=== PATIENT | female | born 1995 | race Caucasian/White ===

== ENCOUNTER 2024-01-20 21:39 | Emergency (ER) | payer SELFPAY ==
--- NOTE | 2024-01-20 23:26 | RAD REPORT ---
INDICATION: IUD replacement PROCEDURE: Pelvic ultrasound, transvaginal COMPARISON: None FINDINGS: Uterus: Orientation: Neutral. Measurement: 8.8 x 4.1 x 4.5 cm for a volume of 83.8 mL. Myometrial echotexture: Normal. Endometrial cavity: Normal caliber measuring 0.5 cm in AP diameter. An IUD is identified in good posi tion.. Right Ovary: Size: 3.5 x 1.9 x 2.2 cm for a volume of 7.6 mL. Blood flow: Normal. Appearance: Normal. Left Ovary: Size: 2.7 x 1.9 x 2.4 cm for a volume of 6.2 mL. Blood flow: Normal. Appearance: Normal. Pelvic Cul de Sac: No free fluid. IMPRESSION: 1. IUD in good position. 2. Otherwise unremarkable pelvic ultrasound. Electronically signed by: Bienvenido Olivier MD 01/20/2024 11:15 PM CDT RP Due to temporary technical issues with the [employer] reporting system, reports are being signed by the in-house radiologist without review as a courtesy to ensure prompt reporting the interpreting radiologist is fully responsible for the content of the report. Transcribed Date/Time: 01/20/2024 11:26 PM
[2024-01-20 23:35] LABS: Specific Gravity 1.019 (1.005-1.030)
[2024-01-20 23:36] LABS: Sqamous Epithelial None Seen /HPF (None Seen); Urine Bacteria None Seen /HPF (<20); Urine Bilirubin NEGATIVE (Negative); Urine Blood Negative (Negative); Urine Clarity Extremely Turbid (Clear); Urine Color Light-Yellow (Yellow); Urine Culture Reflex Order NOT NEEDED; Urine Glucose NEGATIVE (Negative); Urine Ketones NEGATIVE (Negative); Urine Microscopic Reflex YN ORDER UMIC; Urine Nitrite NEGATIVE (Negative); Urine Protein NEGATIVE (Negative); Urine RBC None Seen /HPF (None Seen); Urine Urobilinogen 1+ (Normal); Urine WBC None Seen /HPF (<5)
--- NOTE | 2024-01-20 23:47 | ER ---
Nurse's Notes [facility] Name: Valarie Moreland Age: 28 yrs Sex: Female : 1995 Arrival Date: 01/20/2024 Time: 21:39 Bed 16 Private MD: Diagnosis: Pelvic pain Presentation: 01/19 23:10 Chief complaint: Patient states: Tried to pull out my IUD the day before yesterday and vc1 now it is stuck, I've been spotting and cramping. Coronavirus screen: Client denies travel out of the [place] in the last 14 days. At this time, the client does not indicate any symptoms associated with coronavirus-19. Ebola Screen: Patient negative for fever greater than or equal to 101.5 degrees Fahrenheit, and additional compatible Ebola Virus Disease symptoms Patient denies exposure to infectious person. Patient denies travel to an Ebola-affected area in the 21 days before illness onset. No symptoms or risks identified at this time. Initial Sepsis Screen: Does the patient meet any 2 criteria? No. Patient's initial sepsis screen is negative. Does the patient have a suspected source of infection? No. Patient's initial sepsis screen is negative. Risk Assessment: Do you want to hurt yourself or someone else? Patient reports no desire to harm self or others. Onset of symptoms was January 18, 2024. 23:10 Method Of Arrival: Ambulatory vc1 23:10 Acuity: GEO 4 vc1 23:15 Chief complaint: Patient states: HAVING PELVIC PAIN DUE TO IUD FOR 2 DAYS. Coronavirus kj2 screen: At this time, the client does not indicate any symptoms associated with coronavirus-19. Ebola Screen: No symptoms or risks identified at this time. Initial Sepsis Screen: Does the patient meet any 2 criteria? No. Patient's initial sepsis screen is negative. Does the patient have a suspected source of infection? No. Patient's initial sepsis screen is negative. Risk Assessment: Do you want to hurt yourself or someone else? Patient reports no desire to harm self or others. 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 - Infectious Disease History:: Denies. - Social history:: Smoking status: Patient denies any tobacco usage or history of. Screenin:[address] [facility] ED Fall Risk Assessment (Adult) History of falling in the last 3 months, kj2 including since admission No falls in past 3 months (0 pts) Confusion or Disorientation No (0 pts) Intoxicated or Sedated No (0 pts) Impaired Gait No (0 pts) Mobility Assist Device Used No (0 pt) Altered Elimination No (0 pt) Score/Fall Risk Level 0 - 2 = Low Risk Maintained a safe environment, Hourly rounding (assess needs \T\ fall precautionary measures) done. Abuse screen: Denies threats or abuse. Denies injuries from another. Nutritional screening: No deficits noted. Tuberculosis screening: No symptoms or risk factors identified. Assessment: 23:12 General: Appears in no apparent distress. uncomfortable, Behavior is calm, cooperative. kj2 Pain: Complains of pain in left lower quadrant and right lower quadrant Pain currently is 7 out of 10 on a pain scale. Neuro: Level of Consciousness is awake, alert, Oriented to person, place, time, situation. Cardiovascular: Patient's skin is warm and dry. Respiratory: Airway is patent Respiratory effort is even, unlabored. GI: No signs and/or symptoms were reported involving the gastrointestinal system. : No signs and/or symptoms were reported regarding the genitourinary system. Vital Signs: 23:10 BP 144 / 118; Pulse 86; Resp 16; Temp 98; Pulse Ox 99% ; Weight 56.7 kg; Height 5 ft. 7 vc1 in. ; 23:16 BP 146 / 103; Pulse 68; Resp 20; Pulse Ox 98% on R/A; Weight 56.7 kg; Height 5 ft. 7 kj2 in. ; 01/20 00:34 BP 146 / 88; Pulse 68; Resp 20; Temp 97.9; Pulse Ox 100% ; kj2 01/19 23:16 Body Mass Index 19.58 (56.70 kg, 170.18 cm) kj2 ED Course: 01/19 21:45 Patient arrived in ED. im 21:48 [facility]C [facility]. kb 21:48 Srini Mcgraw MD is Attending Physician. kb 22:57 US Transvaginal Study (Probe) In Process Unspecified. EDMS 23:01 Yesika Pierson, RN is Primary Nurse. kj2 23:16 Triage completed. kj2 23:19 Patient has correct armband on for positive identification. Bed in low position. Call kj2 light in reach. Adult w/ patient. Provided Education on: CALL LIGHT. 23:26 Test, Urine Sent. kj2 23:26 Urinalysis w/ reflexes Sent. kj2 23:54 Arm band placed on Patient placed. kj2 23:54 No provider procedures requiring assistance completed. kj2 01/20 00:34 Patient did not have IV access during this emergency room visit. kj2 Administered Medications: 00:33 Drug: Hydrocodone-Acetaminophen PO (7.5 mg-325 mg) 1 tabs PO once Route: PO; kj2 00:33 Follow up: Response: Medication administered at discharge. kj2 Medication: 01/19 23:20 VIS not applicable for this client. vc1 Outcome: 23:47 Discharge ordered by . kb 01/20 00:33 Discharged to home ambulatory, kj2 Condition: stable Discharge instructions given to patient, Instructed on discharge instructions, follow up and referral plans. Demonstrated understanding of instructions, follow-up care, 00:35 Patient left the ED. kj2 Signatures: Dispatcher [employer] [facility] Leonora Thomas FNP-C FNP-Ckb Calcote, Vanessa RN RN vc1 Rika Rodriguez Yesika Pierson, RN RN kj2
--- NOTE | 2024-01-20 23:47 | EDPHYS ---
Physician Documentation [facility] Name: Valarie Moreland Age: 28 yrs Sex: Female : 1995 Arrival Date: 01/20/2024 Time: 21:39 Bed 16 Private MD: ED Physician Srini Mcgraw HPI: 01/19 22:37 This 28 yrs old Female presents to ER via Unassigned with complaints of Pelvic Pain, kb Foreign body In Vagina - cervix. 22:37 Pt is a 28 year old female who presents for pelvic pain that started 2 days ago. States kb she felt like her IUD string was longer than normal so she tried to pull it out, but was unable. States she feels like it is in the wrong place now. . 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 - Infectious Disease History:: Denies. - Social history:: Smoking status: Patient denies any tobacco usage or history of. ROS: 22:37 Constitutional: As per HPI kb Exam: 22:37 Constitutional: This is a well developed, well nourished patient who is awake, alert, kb and in no acute distress. Head/Face: Normocephalic, atraumatic. ENT: Moist Mucous membranes Cardiovascular: Regular rate Respiratory: Respirations even and unlabored. No increased work of breathing. Talking in full sentences Skin: Warm, dry with normal turgor. Normal color. MS/ Extremity: Pulses equal, no cyanosis. Neurovascular intact. Full, normal range of motion. Neuro: Awake and alert, GCS 15, oriented to person, place, time, and situation. Moves all extremities. Normal gait. 22:37 Abdomen/GI: Inspection: abdomen appears normal, Bowel sounds: normal, Palpation: soft, in all quadrants, mild abdominal tenderness, in the right lower quadrant and left lower quadrant, Vital Signs: 23:10 BP 144 / 118; Pulse 86; Resp 16; Temp 98; Pulse Ox 99% ; Weight 56.7 kg; Height 5 ft. 7 vc1 in. ; 23:16 BP 146 / 103; Pulse 68; Resp 20; Pulse Ox 98% on R/A; Weight 56.7 kg; Height 5 ft. 7 kj2 in. ; 01/20 00:34 BP 146 / 88; Pulse 68; Resp 20; Temp 97.9; Pulse Ox 100% ; kj2 01/19 23:16 Body Mass Index 19.58 (56.70 kg, 170.18 cm) kj2 MDM: 01/19 21:49 Patient medically screened. kb 23:46 Differential diagnosis: displaced IUD, ovarian cyst. Data reviewed: vital signs, nurses kb notes. Counseling: I had a detailed discussion with the patient and/or guardian regarding the historical points, exam findings, and any diagnostic results supporting the discharge/admit diagnosis, radiology results, the need for outpatient follow up, an OB/Gyne specialist, to return to the emergency department if symptoms worsen or persist or if there are any questions or concerns that arise at home. 01/19 22:28 Order name: Test, Urine; Complete Time: 23:39 kb 01/19 22:28 Order name: Urinalysis w/ reflexes; Complete Time: 23:39 kb 01/19 22:28 Order name: US Transvaginal Study (Probe) kb Administered Medications: 01/20 00:33 Drug: Hydrocodone-Acetaminophen PO (7.5 mg-325 mg) 1 tabs PO once Route: PO; kj2 00:33 Follow up: Response: Medication administered at discharge. kj2 Disposition: 02:04 Co-signature as Attending Physician, Srini Mcgraw MD I reviewed the patient's care rt provided by the Advanced Practice Provider and agree with the diagnosis and treatment plan. Disposition Summary: 01/20/24 23:47 Discharge Ordered Notes: Location: Home kb Condition: Stable kb Diagnosis - Pelvic pain kb Followup: kb - With: Emergency Department - When: As needed - Reason: Worsening of condition Followup: kb - With: Private Physician - When: 2 - 3 days - Reason: Recheck today's complaints, Continuance of care, Re-evaluation by your physician Discharge Instructions: - Discharge Summary Sheet kb - Pelvic Pain, Female, [id number] kb Forms: - Medication Reconciliation Form kb - Antibiotic Education kb - Prescription Opioid Use kb - Patient Portal Instructions kb - Leadership Thank You Letter kb Signatures: Dispatcher [employer] Leonora Lynn, Linda Mg RN RN vc1 Srini Mcgraw MD MD rt Jordan, Krystal, RN RN kj2
[2024-01-21] MEDS ORDERED: HYDROCODONE/APAP 7.5/325 MG TAB ONE (00:31)
[2024-01-21 01:25] VITALS: BP 146/88; TEMP 97.9; O2SAT 100
== END 2024-01-21 00:35 | disposition home or self-care (01) ==
LOC: ER 21:39
DX: R10.2 Pelvic and perineal pain (principal)
CPT/HCPCS: 76830; 81001; 81025

== ENCOUNTER 2024-02-22 22:29 | Emergency (ER) | payer SELFPAY ==
--- OUTSIDE RECORDS SUMMARY | 2024-02-22 22:31 | XMS REPORT | Continuity of Care Document ---
Author Name Unknown Address [address] [place] [address]. 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
[2024-02-22] MEDS ORDERED: ONDANSETRON 4 MG/2 ML VIAL ONE (22:54)
[2024-02-22] MEDS ORDERED: NA CHLORIDE 0.9% 1,000 ML ONE (22:54)
[2024-02-22 23:11] LABS: PT Prothrombin Time 11.2 SECONDS (9.4-12.5); PTT, Activated Partial Thromb 33.3 SECONDS (24.3-36.9)
[2024-02-22 23:24] LABS: ALT/SGPT 26 U/L (13-56); AST/SGOT 14 U/L (15-37); Albumin 3.9 g/dL (3.4-5.0); Albumin/Globulin Ratio 1.1 (1.1-1.8); Alkaline Phosphatase 77 U/L (45-117); Anion Gap 6.6 mEq/L (5.0-15.0); BUN Blood Urea Nitrogen 13 mg/dL (7-18); Bicarbonate 28 mEq/L (21-32); Bilirubin Direct 0.3 mg/dL (0-0.2); Bilirubin Indirect, Calculated 0.7 mg/dL (0.2-0.8); Globulin 3.5 g/dL (2.3-3.5); Glomerular Filtration Rate 106 ml/min (=/>90); Glucose Level 106 mg/dL (74-106); Lipase 66 U/L (13-75); Potassium 3.6 mEq/L (3.5-5.1); Protein, Total 7.4 g/dL (6.4-8.2); Sodium Level 138 mEq/L (136-145)
[2024-02-23 00:08] LABS: Absolute Basophils 0.1 K/uL (0-0.5); Absolute Eosinophils 0.2 K/uL (0-0.5); Absolute Lymphocytes (CBC) 3.5 K/uL (0.7-4.9); Absolute Monocytes 0.5 K/uL (0.1-1.3); Absolute Neutrophil 4.2 K/uL (1.8-8.0); Basophils % 0.7 % (0-1.3); Eosinophils % 2.2 % (0-4.4); Hematocrit 43.1 % (36.0-45.0); Hemoglobin 14.9 g/dL (12.0-15.0); Lymphocytes % 41.5 % (15.3-44.8); MCH 30.3 pg (27.0-35.0); MCHC 34.6 g/dL (32.0-36.0); MCV 87.5 fL (80-100); MPV 8.8 fL (7.6-11.3); Monocytes % 6.2 % (3.3-12.3); Neutrophils % 49.4 % (41.7-73.7); Platelets 298 thou/uL (152-406); RBC Red Blood Cell Count 4.92 M/uL (3.86-4.86); Red Cell Distribution Width 12.8 % (12.1-15.2)
[2024-02-23 01:00] LABS: Specific Gravity 1.009 (1.005-1.030); Urine Bilirubin NEGATIVE (Negative); Urine Blood Negative (Negative); Urine Clarity Clear (Clear); Urine Color Colorless (Yellow); Urine Glucose NEGATIVE (Negative); Urine Ketones NEGATIVE (Negative); Urine Microscopic Reflex YN NO UMIC; Urine Nitrite NEGATIVE (Negative); Urine Protein NEGATIVE (Negative); Urine Urobilinogen Normal (Normal)
[2024-02-23 01:07] LABS: Barbiturates NEGATIVE (NEGATIVE); Benzodiazepines NEGATIVE (NEGATIVE); Cocaine NEGATIVE (NEGATIVE); METHAMPHETAM NEGATIVE (NEGATIVE); Methadone NEGATIVE (NEGATIVE); Opiates NEGATIVE (NEGATIVE); Phencyclidine NEGATIVE (NEGATIVE); THC Cannibis NEGATIVE (NEGATIVE)
--- NOTE | 2024-02-23 02:29 | ER ---
Nurse's Notes [facility] Name: Keara Goldsmith Age: 28 yrs Sex: Female : 1995 Arrival Date: 02/22/2024 Time: 22:29 Bed 4 Private MD: Diagnosis: Syncope;Abdominal pain, unspecified Presentation: 02/21 22:49 Chief complaint: pt presented to ER unresponsive, after painful stimuli pain is awake bm8 alert and oriented, reports uterine pain after having IUD removed, with black blood as discharge. Coronavirus screen: At this time, the client does not indicate any symptoms associated with coronavirus-19. Ebola Screen: Patient negative for fever greater than or equal to 101.5 degrees Fahrenheit, and additional compatible Ebola Virus Disease symptoms Patient denies exposure to infectious person. Patient denies travel to an Ebola-affected area in the 21 days before illness onset. No symptoms or risks identified at this time. Initial Sepsis Screen: Does the patient meet any 2 criteria? No. Patient's initial sepsis screen is negative. Does the patient have a suspected source of infection? No. Patient's initial sepsis screen is negative. Risk Assessment: Do you want to hurt yourself or someone else? Patient reports no desire to harm self or others. Onset of symptoms is unknown. 22:49 Method Of Arrival: Wheelchair bm8 22:49 Acuity: GEO 2 bm8 Triage Assessment: 22:51 General: Appears distressed, uncomfortable, Behavior is cooperative, appropriate for bm8 age. General:. Pain: Complains of pain in groin and suprapubic area Pain currently is 5 out of 10 on a pain scale. EENT: No deficits noted. No signs and/or symptoms were reported regarding the EENT system. Neuro: No deficits noted. Level of Consciousness is awake, alert, obeys commands, Oriented to person, place, time, situation, Appropriate for age. Cardiovascular: Denies chest pain, Heart tones S1 S2 present Capillary refill < 3 seconds in bilateral fingers toes Patient's skin is warm and dry. Respiratory: Airway is patent Respiratory effort is even, unlabored, Respiratory pattern is regular, symmetrical, Breath sounds are clear bilaterally. GI: Reports nausea. : Reports vaginal bleeding that is black, after having IUD removed recently. Derm: No signs and/or symptoms reported regarding the dermatologic system. Musculoskeletal: No signs and/or symptoms reported regarding the musculoskeletal system. 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 - Infectious Disease History:: Denies. - Social history:: Smoking status: Patient denies any tobacco usage or history of. Patient/guardian denies using alcohol, street drugs. - Family history:: not pertinent. - Hospitalizations: : No recent hospitalization is reported. Screenin:55 [facility] ED Fall Risk Assessment (Adult) History of falling in the last 3 months, bm8 including since admission Yes- physiologic fall (2 pts) Confusion or Disorientation Yes (5 pts) Intoxicated or Sedated No (0 pts) Impaired Gait Yes (1 pt) Mobility Assist Device Used No (0 pt) Altered Elimination No (0 pt) Score/Fall Risk Level 3 or more points = High Risk Oriented to surroundings, Maintained a safe environment, Educated pt \T\ family on fall prevention, incl call for assistance when getting out of bed, Assessed \T\ reinforced patient's understanding of fall precautions, Hourly rounding (assess needs \T\ fall precautionary measures) done, Used ambulatory aids as needed (educated on \T\ assisted with), Used gait belt as appropriate Implemented a Fall Risk Plan of Care. Abuse screen: Denies threats or abuse. Nutritional screening: No deficits noted. Tuberculosis screening: No symptoms or risk factors identified. Assessment: 22:55 Reassessment: see triage assessment. bm8 02/22 00:03 Reassessment: Patient appears in no apparent distress at this time. No changes from vc1 previously documented assessment. Patient and/or family updated on plan of care and expected duration. Pain level reassessed. Patient is alert, oriented x 3, equal unlabored respirations, skin warm/dry/pink. 03:23 Reassessment: Patient appears in no apparent distress at this time. Patient and/or bm8 family updated on plan of care and expected duration. Pain level reassessed. Patient is alert, oriented x 3, equal unlabored respirations, skin warm/dry/pink. Patient denies pain at this time. Patient states feeling better. Patient states symptoms have improved. Vital Signs: 02/21 22:49 BP 129 / 104; Pulse 67; Resp 16; Temp 98.5; Pulse Ox 100% ; Weight 56.7 kg; Height 5 bm8 ft. 7 in. ; Pain 5/; 22:59 BP 127 / 90; Pulse 59; Resp 15; Pulse Ox 100% ; vc1 02/22 00:00 BP 131 / 94; Pulse 64; Resp 18; Pulse Ox 99% ; vc1 03:23 BP 125 / 87; Pulse 61; Resp 18; Temp 98.5; Pulse Ox 99% ; Pain 0/10; bm8 02/21 22:49 Body Mass Index 19.58 (56.70 kg, 170.18 cm) bm8 02/21 22:49 Pain Scale: Adult bm8 03:23 Pain Scale: Adult bm8 Daja Coma Score: 02/21 22:55 Eye Response: spontaneous(4). Motor Response: obeys commands(6). Verbal Response: bm8 oriented(5). Total: 15. 02/22 03:23 Eye Response: spontaneous(4). Motor Response: obeys commands(6). Verbal Response: bm8 oriented(5). Total: 15. ED Course: 02/21 22:30 Patient arrived in ED. ra3 22:33 Tate Booth MD is Attending Physician. rn 22:49 Kyle Salazar, RN is Primary Nurse. bm8 22:51 Triage completed. bm8 22:51 Arm band placed on left wrist. bm8 22:55 Patient has correct armband on for positive identification. Bed in low position. Call bm8 light in reach. Side rails up X2. Client placed on continuous cardiac and pulse oximetry monitoring. NIBP monitoring applied. fashion merchandiser on. Pulse ox on. NIBP on. Door closed. Noise minimized. Visitors limited. Warm blanket given. Pillow given. Verbal reassurance given. Head of bed lowered. 22:55 No provider procedures requiring assistance completed. Initial lab(s) drawn, by , fish sent to lab. EKG done, by ED staff, reviewed by Tate Booth MD. Inserted saline lock: 18 gauge in left antecubital area, using aseptic technique. Blood collected. Flushed with 10 mL NS. Patient maintains SpO2 saturation greater than 95% on room air. 02/22 00:25 CT Head Brain wo Cont In Process Unspecified. EDMS 00:30 CT Abd/Pelvis - IV Contrast Only In Process Unspecified. EDMS 03:23 Provided Education on: post er care. bm8 03:23 IV discontinued, intact, bleeding controlled, No redness/swelling at site. Pressure bm8 dressing applied. Administered Medications: 02/21 22:59 Drug: Ondansetron IVP 4 mg IVP once; over 2 minutes Route: IVP; Site: left antecubital; vc1 02/22 00:04 Follow up: Response: No adverse reaction; Marked relief of symptoms; Nausea is decreasedvc1 02/21 22:59 Drug: NS 0.9% IV 1000 ml IV at 1 bolus Per protocol; to be given as a bolus over 60 vc1 minutes Route: IV; Rate: 1 bolus; Site: left antecubital; 02/22 00:04 Follow up: IV Status: Completed infusion; IV Intake: 1000ml vc1 03:22 Drug: Amoxicillin-Clavulanate PO 875 mg PO once Route: PO; bm8 03:22 Follow up: Response: No adverse reaction bm8 03:22 Drug: Ondansetron Oral Disintegrating Tablet Oral Disintegrating Tablet 4 mg PO once bm8 Route: PO; 03:22 Follow up: Response: No adverse reaction bm8 Medication: 02/21 22:55 VIS not applicable for this client. bm8 Point of Care Testing: Blood Glucose: 22:58 Blood Glucose: 105 mg/dL; bm8 Ranges: Intake: 02/22 00:04 IV: 1000ml; Total: 1000ml. vc1 Outcome: 02:28 Discharge ordered by . rn 03:23 Discharged to home ambulatory, bm8 03:23 Condition: stable 03:23 Discharge instructions given to patient, Instructed on discharge instructions, follow up and referral plans. no drinking with medication, no driving heavy equipment, medication usage, Demonstrated understanding of instructions, follow-up care, medications, 03:26 Prescriptions given X 2, bm8 03:31 Patient left the ED. bm8 Signatures: Dispatcher [employer] EDMS Tate Booth MD MD rn Calcote, Vanessa, RN RN vc1 Pam Shankar ra3 Kyle Salazar, RN RN bm8
--- NOTE | 2024-02-23 02:29 | EDPHYS ---
Physician Documentation [facility] [place] Name: Keara Goldsmith Age: 28 yrs Sex: Female : 1995 Arrival Date: 02/22/2024 Time: 22:29 Bed 4 Private MD: ED Physician Tate Booth HPI: 02/22 00:54 This 28 yrs old Female presents to ER via Wheelchair with complaints of Passed Out rn Prior To Arrival. 00:54 The patient has experienced syncope. Onset: The symptoms/episode began/occurred just rn prior to arrival. Duration: This was a single episode. Associated signs and symptoms: Pertinent positives: abdominal pain, Pertinent negatives: chest pain, headache, seizure, shortness of breath, vomiting, weakness. Current symptoms: Currently, the patient is not experiencing any symptoms. The patient has not experienced similar symptoms in the past. Patient reports not feeling well today, reports abdominal pain without vomiting or diarrhea. No blood in stool. No trauma. Reports IUD removed about 2 weeks ago and denies vaginal discharge. Is having small amount of dark blood per vagina. No chest pain or shortness of breath. Reports subjective chills but no documented fever. No history of seizures. Denies drug use. Denies .. 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 - Infectious Disease History:: Denies. - Social history:: Smoking status: Patient denies any tobacco usage or history of. Patient/guardian denies using alcohol, street drugs. - Family history:: not pertinent. - Hospitalizations: : No recent hospitalization is reported. ROS: 02/22 00:54 Constitutional: Negative for fever, positive for chills Cardiovascular: Negative for rn chest pain, palpitations, and edema, Respiratory: Negative for shortness of breath, cough, wheezing, and pleuritic chest pain, Abdomen/GI: Positive for abdominal pain : Positive for dark vaginal blood, no clots MS/Extremity: Negative for injury and deformity, Skin: Negative for injury, rash, and discoloration, Neuro: Positive for generalized weakness and malaise Exam: 00:54 Constitutional: Thin female, somnolent but awakens to voice and painful stimuli rn Head/Face: Normocephalic, atraumatic. ENT: Dry mucous membranes Cardiovascular: Regular rate and rhythm. No pulse deficits. Respiratory: No increased work of breathing, no retractions or nasal flaring. Abdomen/GI: Soft, mild periumbilical tenderness. No peritoneal signs. No distention. No ecchymosis. Skin: No rash MS/ Extremity: Pulses equal, no cyanosis. Neuro: Awake and alert, GCS 15, oriented to person, place, time, and situation. Cranial nerves II-XII grossly intact. Motor strength 5/5 in all extremities. Sensory grossly intact. Cerebellar exam normal. 08:15 ECG was reviewed by the Attending Physician. rn Vital Signs: 02/21 22:49 BP 129 / 104; Pulse 67; Resp 16; Temp 98.5; Pulse Ox 100% ; Weight 56.7 kg; Height 5 bm8 ft. 7 in. ; Pain 5/10; 22:59 BP 127 / 90; Pulse 59; Resp 15; Pulse Ox 100% ; vc1 02/22 00:00 BP 131 / 94; Pulse 64; Resp 18; Pulse Ox 99% ; vc1 03:23 BP 125 / 87; Pulse 61; Resp 18; Temp 98.5; Pulse Ox 99% ; Pain 0/10; bm8 02/21 22:49 Body Mass Index 19.58 (56.70 kg, 170.18 cm) bm8 02/21 22:49 Pain Scale: Adult bm8 03:23 Pain Scale: Adult bm8 Daja Coma Score: 02/21 22:55 Eye Response: spontaneous(4). Motor Response: obeys commands(6). Verbal Response: bm8 oriented(5). Total: 15. 02/22 03:23 Eye Response: spontaneous(4). Motor Response: obeys commands(6). Verbal Response: bm8 oriented(5). Total: 15. MDM: 02/21 22:33 Medical Screening Exam initiated rn 02/22 02:26 Differential Diagnosis: cardiac arrhythmia, emotional response, idiopathic syncope, rn seizure, vasovagal episode. Data reviewed: vital signs, nurses notes, lab test result(s), EKG, radiologic studies, CT scan, and as a result, I will discharge patient. Consideration of Admission/Observation Escalation of care including admission/observation considered. Admission considered based on presentation but patient improved markedly, normal ECG, no acute findings on workup. No anemia and no UTI. CT shows possible cystitis. It is possible that patient is just early in presentation as she reports subjective fever and chills and abdominal pain. Will cover with Augmentin and as needed Zofran and given strict return precautions. Stable vital signs. Patient feels better.. Counseling: I had a detailed discussion with the patient and/or guardian regarding the historical points, exam findings, and any diagnostic results supporting the discharge/admit diagnosis, lab results, radiology results, the need for outpatient follow up, to return to the emergency department if symptoms worsen or persist or if there are any questions or concerns that arise at home. 02/21 22:35 Order name: CMP; Complete Time: 23:39 02/21 22:35 Order name: Lipase; Complete Time: 23:39 02/21 22:35 Order name: Urinalysis w/ reflexes; Complete Time: 01:13 02/21 22:35 Order name: Acetaminophen; Complete Time: 23:39 rn 02/21 22:35 Order name: ETOH Level; Complete Time: 23:39 02/21 22:35 Order name: Hepatic Function; Complete Time: 23:39 02/21 22:35 Order name: PT-INR; Complete Time: 23:39 02/21 22:35 Order name: Ptt, Activated; Complete Time: 23:39 02/21 22:35 Order name: Salicylate; Complete Time: 23:39 rn 02/21 22:35 Order name: Urine Drug Screen; Complete Time: 01:13 rn 02/21 22:55 Order name: Glucose, Ancillary Testing; Complete Time: 23:39 EDMS 02/21 23:04 Order name: Test, Serum; Complete Time: 23:39 vc1 02/21 23:57 Order name: CBC with Diff; Complete Time: 00:54 rn 02/21 22:35 Order name: CT Abd/Pelvis - IV Contrast Only rn 02/22 00:02 Order name: CT Head Brain wo Cont rn 02/21 22:35 Order name: EKG; Complete Time: 22:35 rn 02/21 22:35 Order name: IV Saline Lock; Complete Time: :44 rn 02/21 22:35 Order name: Labs collected and sent; Complete Time: 22:44 rn 02/21 22:35 Order name: EKG - Nurse/Tech; Complete Time: 22:44 rn 02/21 22:35 Order name: IV Saline Lock; Complete Time: :44 rn 02/21 22:37 Order name: Glucose Level; Complete Time: :44 rn EC:15 Rate is 75 beats/min. Rhythm is regular. QRS [place] is Normal. RI interval is normal. QRS rn interval is normal. QT interval is normal. No Q waves. T waves are Normal. No ST changes noted. Clinical impression: Normal ECG. Interpreted by me. Reviewed by me. Administered Medications: 02/21 22:59 Drug: Ondansetron IVP 4 mg IVP once; over 2 minutes Route: IVP; Site: left antecubital; vc1 02/22 00:04 Follow up: Response: No adverse reaction; Marked relief of symptoms; Nausea is decreasedvc1 02/21 22:59 Drug: NS 0.9% IV 1000 ml IV at 1 bolus Per protocol; to be given as a bolus over 60 vc1 minutes Route: IV; Rate: 1 bolus; Site: left antecubital; 02/22 00:04 Follow up: IV Status: Completed infusion; IV Intake: 1000ml vc1 03:22 Drug: Amoxicillin-Clavulanate PO 875 mg PO once Route: PO; bm8 03:22 Follow up: Response: No adverse reaction bm8 03:22 Drug: Ondansetron Oral Disintegrating Tablet Oral Disintegrating Tablet 4 mg PO once bm8 Route: PO; 03:22 Follow up: Response: No adverse reaction bm8 Point of Care Testing: Blood Glucose: 02/21 22:58 Blood Glucose: 105 mg/dL; bm8 Ranges: Critical Glucose Levels:Adult <50 mg/dl or >400 mg/dl <40 mg/dl or >180 mg/dl Disposition Summary: 02/23/24 02:28 Discharge Ordered Notes: Location: Home rn Problem: new rn Symptoms: have improved rn Condition: Stable rn Diagnosis - Syncope rn - Abdominal pain, unspecified rn Followup: rn - With: Private Physician - When: As needed - Reason: Recheck today's complaints, Re-evaluation by your physician Discharge Instructions: - Discharge Summary Sheet rn - Abdominal Pain, Adult rn - Syncope rn Forms: - Medication Reconciliation Form rn - Antibiotic admissions rn - Prescription Opioid Use rn - Patient Portal Instructions rn - Leadership Thank You Letter rn Prescriptions: - ondansetron 4 mg Oral Tablet,disintegrating - take 1 tablet ORAL route every 8 hours As needed; 12 tablet; Refills: 0, rn Product Selection Permitted - Augmentin 875-125 mg Oral Tablet - take 1 tablet ORAL route every 12 hours for 10 days; 20 tablet; Refills: 0, rn Product Selection Permitted Signatures: Dispatcher [employer] EDMS Tate Booth MD MD rn Calcote, Vanessa RN RN vc1 Kyle Salazar RN RN bm8 Corrections: (The following items were deleted from the chart) 23:57 23:57 CBC+H.LAB.BRZ ordered. EDMS EDMS
[2024-02-23] MEDS ORDERED: AMOX/K CLAV 875 MG TAB ONE (02:54)
[2024-02-23] MEDS ORDERED: ONDANSETRON 4 MG (ODT) TAB ONE (02:54)
[2024-02-23 04:07] VITALS: BP 125/87; TEMP 98.5; O2SAT 99
--- NOTE | 2024-02-23 04:48 | RAD REPORT ---
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 COMPARISON: US Pelvis 01/21/2024. PROCEDURE: Contrast-enhanced images of the abdomen and pelvis were performed from the lung bases to the ischial tuberosities after the administration of IV contrast. In addition multiplanar reformats in the coronal and sagittal plane were obtained and reviewed. An individualized dose optimization technique, Automated Exposure Control, was utilized for the perfo rmed procedure. FINDINGS: Lung bases: The lung bases demonstrated presence of minimal haziness within the posterior CP angles s uggesting minimal atelectasis. Liver: The liver demonstrated presence of decreased attenuation corresponding to mild fatty infiltrat ion. Gallbladder: The gallbladder is contracted most likely related to lack of fasting. No significant yobany ling defects and/or abnormality is identified. Adrenal glands: The adrenal glands demonstrate to be normal. Pancreas: The pancreas demonstrate to be normal. Spleen: The spleen demonstrate to be within normal limits. Kidneys: The kidneys demonstrate normal uptake of contrast media. There is no evidence for nephroli thiasis and/or hydronephrosis. GI: Grossly the unopacified stomach, small bowel and large bowel demonstrate to be within normal limi ts. No evidence for bowel dilatation and/or free air. The appendix was not visualized. The large bowel demonstrate presence of mild fecal residue suggesting the possibility of mild fecal stasis. : The urinary bladder demonstrate to be suboptimal distention. Minimal diffuse circumferential wall thickening. Genitalia: The uterus demonstrate to be within normal limits. There are normal adnexal structures. Abdominal aorta: The aorta demonstrate to be within normal limits. Retroperitoneum: There is no retroperitoneal lymphadenopathy. There is no evidence for ascites and/or abnormal fluid collections. Bones: The bony structures demonstrate to be within normal limits. No evidence for compression deform ity and/or significant skeletal lesions. Soft tissues: The soft tissues demonstrate to be unremarkable. IMPRESSION: Minimal diffuse circumferential wall thickening of the urinary bladder. Recommend correlation with ur inalysis. Mild fatty infiltration of the liver. Mild fecal stasis. Electronically signed by: Trav Smith MD 02/23/2024 01:40 AM CONDEMNATION ENGINEER Due to temporary technical issues with the PACS/M_SOLUTION reporting system, reports are being helio d by the in-house radiologist without review as a courtesy to ensure prompt reporting the interpreting radiologist is fully responsible for the content of the report. Transcribed Date/Time: 02/23/2024 4:48 AM
--- NOTE | 2024-02-23 04:48 | RAD REPORT ---
PROCEDURE: CT Head Without Intravenous Contrast CLINICAL INDICATION: The patient is 28 years old and is Female; Syncope. TECHNIQUE: Axial computed tomography images of the head/brain without intravenous contrast. Sagittal and coron al reformatted images were created and reviewed. This CT exam was performed using one or more of the following dose reduction techniques: automated exposure control, adjustment of the mA and/or kV according to patient size, and/or use of iterative reconstruction technique. COMPARISON: None. FINDINGS: BRAIN: No extra-axial fluid collection. No intracranial hemorrhage. No transtentorial herniation. N o focal epperson-white matter differentiation abnormality. MIDLINE SHIFT: None. VENTRICLES: Unremarkable No ventriculomegaly. BONES/JOINTS: No fracture of the calvarium or visualized facial bones. SOFT TISSUES: Unremarkable SINUSES: No masses, bony erosion or evidence of acute sinusitis. MASTOID AIR CELLS: Unremarkable as visualized. No mastoid effusion. IMPRESSION: No acute intracranial abnormality. Electronically signed by: Roc Cervantes MD 02/23/2024 02:01 AM [facility] Due to temporary technical issues with the PACS/[employer] reporting system, reports are being helio d by the in-house radiologist without review as a courtesy to ensure prompt reporting the interpreting radiologist is fully responsible for the content of the report. Transcribed Date/Time: 02/23/2024 4:48 AM
--- NOTE | 2024-02-23 12:02 | EKG ---
Test Date: 2024-02-22 Test Time: 22:38:54 Combination Man: PAULINA MEASUREMENT RESULTS: Intervals: Rate: 75 NM: 112 QRSD: 74 QT: 406 QTc: 453 [place]: P: 56 NM: 112 QRS: 67 T: 52 INTERPRETIVE STATEMENTS: Normal sinus rhythm Normal ECG No previous ECG available for comparison Electronically Signed On 02-23-24 12:01:41 [employer] by [place]
== END 2024-02-23 03:31 | disposition home or self-care (01) ==
LOC: ER 22:29
DX: R55 Syncope and collapse (principal); R10.9 Unspecified abdominal pain
CPT/HCPCS: 36415; 70450; 74177; 80053; 80143; 80179; 80307; 81003; 82077; 82248; 82947; 83690; 84703; 85025; 85610; 85730; 93005; 96361; 96374; 99285; J2405; J7030; Q0162; Q9967